=== PATIENT | male | born 1940 | race Hispanic/Latino ===

== ENCOUNTER 2019-02-11 08:23 | Emergency (ER) | payer OTHER ==
--- OUTSIDE RECORDS SUMMARY | 2019-02-11 08:25 | XMS REPORT ---
:1940 Author Organization eClinicalWorks Care Team Providers Name Role Phone Fish Serge Provider Role Unavailable Allergies, Adverse Reactions, Alerts Substance Reaction Event Type Lisinopril Info Not Available Drug Allergy Problems Problem Type Condition Code Onset Dates Condition Status Assessment Personal history of colonic polyps Z86.010 Active Assessment Encounter for preventative adult Z00.00 Active health care examination Assessment Screening for colon cancer Z12.11 Active Problem Elevated prostate specific antigen R97.2 Active (PSA) Problem Prostate cancer C61 Active Problem Hypertension I10 Active Problem BPH without urinary obstruction N40.0 Active Problem Personal history of colonic polyps Z86.010 Active Problem History of radiation exposure Z92.3 Active Assessment BPH without urinary obstruction N40.0 Active Assessment Elevated prostate specific antigen R97.2 Active (PSA) Assessment History of radiation exposure Z92.3 Active Assessment Screening for osteoporosis Z13.820 Active Assessment Prostate cancer C61 Active Medications Medication Code System Code Instructions Start Date End Date Status Dosage Cozaar [facility] 61935203532 25 MG Active TAKE 1 TABLET EVERY DAY Results No Known Results Summary Purpose eClinicalWorks Submission
--- OUTSIDE RECORDS SUMMARY | 2019-02-11 08:25 | XMS REPORT ---
:1940 Author Organization eClinicalWorks Care Team Providers Name Role Phone Abe Serge Provider Role Unavailable Allergies, Adverse Reactions, Alerts Substance Reaction Event Type Lisinopril Info Not Available Drug Allergy Problems Problem Type Condition Code Onset Dates Condition Status Assessment Fall, initial encounter W19.XXXA Active Assessment Leg pain, left M79.605 Active Assessment Muscle strain T14.8XXA Active Problem Elevated prostate specific antigen R97.2 Active (PSA) Problem Prostate cancer C61 Active Problem Hypertension I10 Active Problem BPH without urinary obstruction N40.0 Active Problem Personal history of colonic polyps Z86.010 Active Problem History of radiation exposure Z92.3 Active Medications Medication Code Code Instructions Start End Date Status Dosage System Date Pennsaid [facility] 62969043813 2 % Transdermal Dec 31January 30, Active 2 pumps to Twice a day 2018 2018 affected area Cozaar [facility] 88172277606 25 MG Orally Active take 1 Once a day tablet every day Duexis [facility] 99105769906 800-26.6 MG Dec 31January 30, Active 1 tablet Orally Three 2018 2018 times a day Results No Known Results Summary Purpose eClinicalWorks Submission
--- OUTSIDE RECORDS SUMMARY | 2019-02-11 08:25 | XMS REPORT ---
:1940 Author Organization eClinicalWorks Care Team Providers Name Role Phone Ken Cameron Provider Role Unavailable Allergies No Known Allergies Problems Problem Type Condition Code Onset Dates Condition Status Problem Elevated prostate specific antigen R97.2 Active (PSA) Problem Prostate cancer C61 Active Problem Hypertension I10 Active Problem BPH without urinary obstruction N40.0 Active Problem Personal history of colonic polyps Z86.010 Active Problem History of radiation exposure Z92.3 Active Medications No Known Medications Results No Known Results Summary Purpose [employer] (formerly [employer]) Submission
--- OUTSIDE RECORDS SUMMARY | 2019-02-11 08:25 | XMS REPORT ---
:1940 Author Organization eClinicalWorks Care Team Providers Name Role Phone Fish, [facility] Provider Role Unavailable Allergies, Adverse Reactions, Alerts Substance Reaction Event Type Lisinopril Info Not Available Drug Allergy Problems Problem Type Condition Code Onset Dates Condition Status Assessment Prostate cancer C61 Active Assessment Hypertension I10 Active Assessment Personal history of colonic polyps Z86.010 Active Assessment BPH without urinary obstruction N40.0 Active Assessment History of radiation exposure Z92.3 Active Problem Elevated prostate specific antigen R97.2 Active (PSA) Problem Prostate cancer C61 Active Problem Hypertension I10 Active Problem BPH without urinary obstruction N40.0 Active Problem Personal history of colonic polyps Z86.010 Active Problem History of radiation exposure Z92.3 Active Medications Medication Code System Code Instructions Start End Date Status Dosage Date Tyler [facility] [id number] 25 MG Orally Once Active take 1 a day tablet every day Results No Known Results Summary Purpose eClinicalWorks Submission
--- OUTSIDE RECORDS SUMMARY | 2019-02-11 08:25 | XMS REPORT ---
:1940 Author Organization eClinicalWorks Care Team Providers Name Role Phone Abe [facility] Provider Role Unavailable Allergies No Known Allergies Problems Problem Type Condition Code Onset Dates Condition Status Assessment Serum potassium elevated E87.5 Active Problem Elevated prostate specific antigen R97.2 Active (PSA) Problem Prostate cancer C61 Active Problem Hypertension I10 Active Problem BPH without urinary obstruction N40.0 Active Problem Personal history of colonic polyps Z86.010 Active Problem History of radiation exposure Z92.3 Active Medications No Known Medications Results No Known Results Summary Purpose eClinicalWorks Submission
--- NOTE | 2019-02-11 08:45 | RAD REPORT ---
EXAM DESCRIPTION: CT - Ct Stroke Brain Wo Cont - 02/11/2019 8:39 am CLINICAL HISTORY: Code stroke CT head, right arm weakness and drift CLINICAL HISTORY: None. TECHNIQUE: Axial 5 millimeter thick images of the head were obtained without IV contrast. All CT scans are performed using dose optimization technique as appropriate and may include automated exposure control or mA/KV adjustment according to patient size. FINDINGS: No intracranial hemorrhage, mass, or cerebral edema. No acute cortical based infarction id entified. No cortical edema or sulcal effacement seen. Patient does have underlying mild to moderate atrophy and chronic ischemic change that could mask a nonhemorrhagic CVA. Patient has focal encephalo malacia in the left frontal lobe from remote CVA. Ventricles are in proportion to volume loss. No ext ra-axial fluid collections. Reyes matter-white matter differentiation is preserved. Visualized portions of the mastoid air cells, paranasal sinuses, and orbits are unremarkable. Findings telephoned to doctor Ferris 8:35 a.m. IMPRESSION: No intracranial hemorrhage. No acute cortical infarction identified. Mild to moderate atrophy and chronic ischemic changes are present. Chronic ischemic changes can mask nonhemorrhagic acute infarction. MR brain followup can be obtained if there is ongoing concern for acute ischemia.
[2019-02-11 08:50] LABS: Absolute Lymphocytes (CBC) 1.8 K/uL (0.7-4.9); Absolute Monocytes 0.6 K/uL (0.1-1.3); Absolute Neutrophil 4.8 K/uL (1.8-8.0); Basophils % 1.1 % (0-1.3); Eosinophils % 3.6 % (0-4.4); Hematocrit 43.7 % (39.6-49.0); Lymphocytes % 23.8 % (15.3-44.8); MPV 9.3 fL (7.6-11.3); Monocytes % 7.6 % (3.3-12.3); RBC Red Blood Cell Count 4.74 M/uL (4.33-5.43)
[2019-02-11 08:58] LABS: Protime INR 0.97
[2019-02-11] MEDS ORDERED: ASPIRIN 81 MG CHEWABLE TABLET ONE (08:59)
--- NOTE | 2019-02-11 09:30 | RAD REPORT ---
EXAM DESCRIPTION: RAD - Chest Single View - 02/11/2019 8:51 am CLINICAL HISTORY: Code stroke chest film COMPARISON: December 2014 TECHNIQUE: AP portable chest image was obtained 0849 hours . FINDINGS: Lung volumes are low. Interstitial markings are mildly prominent. This is mostly due to th e shallow inspiration. A mild progression of fibrosis would be possible. Failure or volume overload a re not seen. Heart and vasculature are normal. No measurable pleural effusion and no pneumothorax. No acute bony abnormality seen. No acute aortic findings suspected. IMPRESSION: Limited shallow inspiration film felt be without acute cardiopulmonary finding.
--- NOTE | 2019-02-11 09:49 | RAD REPORT ---
EXAM DESCRIPTION: MRI - Brain Wo Cont - 02/11/2019 9:34 am CLINICAL HISTORY: Right arm weakness COMPARISON: CT head same date TECHNIQUE: Sagittal T1-weighted images were obtained along with axial PD, heavily T2-weighted and T2 -FLAIR images. Axial DWI and ADC mapping sequences were also obtained along with coronal heavily T2-w eighted images. FINDINGS: No intracranial hemorrhage is present. There is no mass effect, edema or shift of midline structures. Patient has mild atrophy. There is minimal chronic ischemic change in the cerebral white matter. In the anterior left frontal lobe there is a 15 millimeter area of encephalomalacia from prio r ischemic or traumatic injury. Diffusion-weighted imaging shows a punctate 2 mm focus of increased signal intensity posterior left f rontal lobe adjacent to deep margin of a sulcus. This is anterior to the central sulcus. In the super ior most left frontal lobe near the midline there is an additional punctate 1-2 mm area of increased signal on diffusion-weighted imaging. These are relatively subtle lesions that do appear to have a co rrelate of diminished signal on ADC mapping. Neither lesion is associated with the central sulcus but are suspicious for punctate acute nonhemorrhagic infarctions. Ventricles are normal. No extra-axial fluid collections. Reyes-matter/white matter junction is preserv ed. Signal voids are seen as a normal finding in the major intracranial vessels. Mastoid air cells and paranasal sinuses are clear. IMPRESSION: Two punctate areas of nonhemorrhagic acute infarction are seen in the posterior left fro ntal lobe. Lesions are in relative proximity to the central sulcus and could potentially contribute t o right-side neurologic symptoms. Patient has mild atrophy and minimal chronic ischemic change. There is old encephalomalacia in the an terior left frontal lobe from a prior CVA or prior traumatic event.
[2019-02-11] MEDS ORDERED: NA CHLORIDE 0.9% 1,000 ML ONE (10:33)
[2019-02-11] MEDS ORDERED: FOLIC ACID 5 MG/ML VIAL ONE (10:35)
--- NOTE | 2019-02-11 11:16 | RAD REPORT ---
EXAM DESCRIPTION: MRI - MRA Head Wo Cont - 02/11/2019 11:02 am CLINICAL HISTORY: CVA, abnormal MRI brain COMPARISON: MR brain February 11 TECHNIQUE: Axial and coronal 3D [id number] image acquisition was performed. 3D rotational images were generated with source and reconstruction images reviewed. Horizontal and vertical axis rotation al views generated using MIP protocol. FINDINGS: Left vertebral artery is dominant. There is mild tortuosity of the vertebrobasilar vascula ture. No basilar stenosis. There is focal narrowing at the origin of the left posterior cerebral khalida ry. The bilateral posterior cerebral artery's more distally show no occlusion or significant atherosc lerotic change. Patient has significant atherosclerotic calcifications and luminal narrowing of the supraclinoid and distal cavernous portions of each internal carotid artery. This is more pronounced on the right. Mild atherosclerotic changes are present in the bilateral middle cerebral arteries. No high-grade stenosi s. The ischemic findings on MRI or very small. No named branch occlusion identifiable. Anterior communicating artery is present. Mild atherosclerotic changes are present in the distal ante rior cerebral arteries was slightly more prominent atherosclerotic change in the left A1 segment of t he anterior cerebral artery. The origins of each internal carotid artery in the neck are not optimally visualized due to motion. I nternal carotid arteries are otherwise unremarkable. IMPRESSION: Atherosclerotic changes are present most pronounced in the distal cavernous and supracli noid portions of each internal carotid artery. Calcifications and atherosclerotic change cause signif icant luminal narrowing. Anterior, middle and posterior cerebral artery distribution show mild atherosclerotic change. No spec ific branch occlusion identifiable for the left cerebral CVA findings. Carotid bulbs are not adequately visualized on this study. Contrast-enhanced MR angiography of the ce rvical vasculature could be performed. Carotid sonography could be performed if the patient cannot re ceive contrast.
[2019-02-11] MEDS ORDERED: HYDRALAZINE HCL 20 MG/ML VIAL ONE (11:38)
--- NOTE | 2019-02-11 11:44 | ER ---
Nurse's Notes [facility] Name: Guanako Man Age: 78 yrs Sex: Male : 1940 Arrival Date: 02/11/2019 Time: 08:27 Bed 14 Private MD: Diagnosis: Cerebral infarction-Posterior left frontal lobe Presentation: 02/11 08:27 Acuity: JUAN 2 sv 08:27 Transition of care: patient was not received from another setting of care. Care prior sv to arrival: None. 08:27 Method Of Arrival: Wheelchair sv 08:27 Presenting complaint: Patient states: "I clocked in to work around 0758 and soon after aa5 8am I started having trouble holding a pen and my right arm felt weak". Pt states "I also have a little bit of pain to right arm". Slight right arm drift noted at this time, strategic account manager are equal, no other neuro deficits noted at this time. 08:27 An acute neurological deficit is present. The patient has been [facility] a [facility]. Pre-hospital glucose is not applicable to this patient. Onset of symptoms was February 11, 2019. Risk Assessment: Do you want to hurt yourself or someone else? Patient reports no desire to harm self or others. 08:50 Initial Sepsis Screen: Does the patient meet any 2 criteria? No. Patient's initial sv sepsis screen is negative. Does the patient have a suspected source of infection? No. Patient's initial sepsis screen is negative. Stroke Activation: Symptom onset < 3 hours Physician: Stroke Attending; Name: ; Notified At: ; Arrived At: Physician: Chief Stroke Resident; Name: ; Notified At: ; Arrived At: Physician: Stroke Resident; Name: ; Notified At: ; Arrived At: Physician: ED Attending; Name: Dr Ferris; Notified At: 08:27; Arrived At: 08:27 Physician: ED Resident; Name: ; Notified At: ; Arrived At: Historical: - Allergies: 08:32 No Known Allergies; sv - Home Meds: 08:45 aspirin 81 mg Oral chew once daily [Active]; losartan 25 mg oral tab 1 tab once daily aa5 [Active]; - PMHx: 08:45 Hypertension; aa5 - PSHx: 08:45 Cholecystectomy; aa5 - Immunization history:: Adult Immunizations up to date, Flu vaccine is up to date. - Social history:: Smoking status: Patient/guardian denies using tobacco. - Ebola Screening: : No symptoms or risks identified at this time. Screenin:28 Abuse screen: Denies threats or abuse. Denies injuries from another. Nutritional sv screening: No deficits noted. Tuberculosis screening: No symptoms or risk factors identified. Fall Risk None identified. Assessment: 08:27 Reassessment: Code Stroke called by Beverly IRELAND. sv 08:27 VAN Scoring: Arm Drift: Minor drift Visual Disturbance: No visual disturbance noted. aa5 Aphasia: No aphasia noted. Neglect: No neglect noted. 08:28 Reassessment: Pt taken to CT via stretcher by me. . aa5 08:37 Reassessment: Pt back from CT scan . aa5 08:39 General: Appears in no apparent distress. comfortable, slender, well groomed, well sv developed, Behavior is calm, cooperative, appropriate for age. Pain: Denies pain. Neuro: Level of Consciousness is awake, alert, obeys commands, Oriented to person, place, time, situation, Tumbler Operator are equal bilaterally Moves all extremities. Gait is steady, Speech is normal, Facial symmetry appears normal, Facial symmetry: tongue is midline, Pupils are PERRLA, Reports dizziness. Respiratory: Respiratory effort is even, unlabored, Respiratory pattern is regular, symmetrical. Derm: Skin is pink, warm \\T\\ dry. 08:50 Patient has been NPO before screening. The patient is alert, and able to follow sv commands. The patient does not exhibit slurred or garbled speech. The patient is not exhibiting difficulty speaking. The patient does not exhibit difficulty understanding words. The patient is able to swallow own secretions with no drooling or need for suction. Patient tolerated one teaspoon of water. No drooling, immediate coughing, gurgling, or clearing of the throat was noted. The patient tolerated 90mL of water. No drooling, immediate coughing, gurgling, or clearing of the throat was noted. The patient passed the bedside swallow screening. Oral medications may be given as ordered. Contact Physician for further diet orders. Provider notified of bedside swallow screening results: Sheldon NGUYEN. 10:00 Reassessment: PATRICK Yang at bedside, patient states that he is feeling back to normal aj1 at this time. 10:33 Reassessment: Patient transported to MRI via wheelchair. aj1 11:09 Reassessment: Patient returned to room via wheelchair. aj1 11:36 Reassessment: Patient and/or family updated on plan of care and expected duration. Pain aj1 level reassessed. General: Appears in no apparent distress. distressed, Behavior is calm, cooperative, appropriate for age. Pain: Denies pain. Neuro: Level of Consciousness is awake, alert, obeys commands, Oriented to person, place, time, situation, Speech is normal, Facial symmetry appears normal. Cardiovascular: Patient's skin is warm and dry. Rhythm is sinus rhythm. Respiratory: Airway is patent Respiratory effort is even, unlabored, Respiratory pattern is regular, symmetrical. GI: No signs and/or symptoms were reported involving the gastrointestinal system. : No signs and/or symptoms were reported regarding the genitourinary system. EENT: No signs and/or symptoms were reported regarding the EENT system. Derm: No signs and/or symptoms reported regarding the dermatologic system. Skin is pink, warm \\T\\ dry. normal. Musculoskeletal: Range of motion: intact in all extremities. 12:39 Reassessment: Patient appears in no apparent distress at this time. No changes from aj1 previously documented assessment. Patient and/or family updated on plan of care and expected duration. Pain level reassessed. Patient is alert, oriented x 3, equal unlabored respirations, skin warm/dry/pink. 13:10 Reassessment: Patient appears in no apparent distress at this time. No changes from aj1 previously documented assessment. Patient and/or family updated on plan of care and expected duration. Pain level reassessed. Patient is alert, oriented x 3, equal unlabored respirations, skin warm/dry/pink. Vital Signs: 08:38 BP 206 / 63; Pulse 62; Resp 14 S; Temp 97.8(O); Pulse Ox 99% on R/A; aa5 09:00 BP 166 / 50; Pulse 55; Resp 16; Pulse Ox 97% ; sv 10:00 BP 186 / 90; Pulse 52; Resp 18; Pulse Ox 98% on R/A; aj1 11:14 BP 198 / 60; Pulse 55; Resp 13; Pulse Ox 100% on R/A; aj1 11:37 BP 171 / 60; Pulse 65; Resp 18; Pulse Ox 97% on R/A; aj1 12:00 BP 161 / 54; Pulse 67; Resp 18; Pulse Ox 100% on R/A; aj1 13:10 BP 160 / 55; Pulse 62; Resp 18; Pulse Ox 97% ; aj1 NIH Stroke Scale Scores: 08:27 NIHSS Score: 1 aa5 08:39 NIHSS Score: 0 cp ED Course: 08:26 Patient has correct armband on for positive identification. Bed in low position. Call light in reach. 08:27 Patient arrived in ED. mr 08:27 Cat Goss, RN is Primary Nurse. sv 08:[address] via stretcher. sv 08:27 Arm band placed on. sv 08:33 Sheldon Ferris MD is Attending Physician. lottie 08:34 Triage completed. sv 08:38 Sheldon NGUYEN at bedside. sv 08:38 Initial lab(s) drawn, by me, sent to lab. Inserted saline lock: 20 gauge in right sv forearm, using aseptic technique. Blood collected. Flushed right forearm with 5 ml normal saline. 08:39 Sheldon Melendez PA is PHCP. cp 08:39 CT Stroke Brain w/o Contrast In Process Unspecified. EDMS 08:50 X-ray completed. Portable x-ray completed in exam room. Patient tolerated procedure sw well. 08:51 Stroke CXR 1 View In Process Unspecified. EDMS 08:54 Awaiting: MRI. sv 09:15 Patient moved to MRI via wheelchair. sv 09:22 EKG done, by ED staff, reviewed by Sheldon NGUYEN. at1 09:28 Brain Wo Cont In Process Unspecified. EDMS 09:39 Patient moved back from [facility]. sv 09:56 Report given to Shannan IRELAND. sv 09:56 initiated a transfer with Faiza Serrano at the [facility] transfer center. eb 10:00 connected the neurologist methane gas collection system operator from [facility] Dr. Hong with Sheldon NGUYEN for eb patient transfer consultation. 10:50 Patient moved to MRI via wheelchair. em2 11:02 MRA Head Wo Cont In Process Unspecified. EDMS 11:15 MRI completed. Patient tolerated well. Patient moved back from [facility]. em2 11:[address] Hong back for Sheldon NGUYEN for patient transfer consultation/ he is eb unavailable at this time and will call back. 11:35 returned phone call to Quirino NGUYEN to discuss tranfer consultation. eb 11:46 administrative approval given by Lynda Fajardo RN/ patient has been accepted to [facility] bed 2263/ has accepted the patient in transfer/ report to be called [phone]. 12:20 Report given to SHU Escobar at [facility]. aj1 13:10 No provider procedures requiring assistance completed. Patient transferred, IV remains aj1 in place. Administered Medications: 08:51 Drug: Aspirin Chewable Tablet 324 mg Route: PO; sv 09:19 Follow up: Response: No adverse reaction sv 11:13 Drug: foLIC Acid 1 mg Route: IVPB; Site: right antecubital; aj1 13:22 Follow up: IV Status: Completed infusion aj1 11:14 Drug: NS 0.9% 500 ml Route: IV; Rate: bolus; Site: right antecubital; aj1 13:22 Follow up: IV Status: Completed infusion; IV Intake: 500ml aj1 11:35 Drug: NS 0.9% 250 ml Route: IV; Rate: ml/hr; Site: right antecubital; aj1 13:22 Follow up: IV Status: Completed infusion; IV Intake: 250ml aj1 11:35 Drug: hydrALAZINE 10 mg Route: IV; Rate: bolus; Site: right antecubital; aj1 13:22 Follow up: IV Status: Completed infusion aj1 Point of Care Testing: Blood Glucose: 08:41 Blood Glucose: 137 mg/dL; sv Ranges: Intake: 13:22 IV: 500ml; Total: 500ml. aj1 13:22 IV: 250ml; Total: 750ml. aj1 Outcome: 11:44 ER care complete, transfer ordered by MD. correa 13:10 Transferred by ground EMS to [facility]. aj1 13:10 Condition: stable 13:10 Discharge instructions given to patient, Instructed on the need for transfer, Demonstrated understanding of instructions. 13:23 Patient left the ED. aj1 NIH Stroke Scale - NIH Stroke Score Date: 02/11/2019 Time: 08:27 Total Score = 1 1a. Level of Consciousness (LOC) - 0(Alert) 1b. Level of Consciousness (LOC) (Year \\T\\ Age) - 0(Both) 1c. LOC Commands (Open \\T\\ Closes Eyes/Formation Testing Operator) - 0(Both) 2. Best Gaze (Lateral Gaze Paresis) - 0(Normal) 3. Visual Field Loss - 0(No visual loss) 4. Facial Palsy - 0(Normal) 5a. Left Arm: Motor (10-second hold) - 0(No drift) 5b. Right Arm: Motor (10-second hold) - 1(Drift) 6a. Left Leg: Motor (5-second hold - always test supine) - 0(No drift) 6b. Right Leg: Motor (5-second hold - always test supine) - 0(No drift) 7. Limb Ataxia (finger/nose \\T\\ heel/antonio - test with eyes open) - 0(Absent) 8. Sensory Loss (pinprick arms/legs/face) - 0(Normal) 9. Best Language: Aphasia (description/naming/reading) - 0(No aphasia) 10. Dysarthria (speech clarity - read or repeat words) - 0(Normal) 11. Extinction and Inattention (visual/tactile/auditory/spatial/personal) - 0(No abnormality) Initials: aa5 NIH Stroke Scale - NIH Stroke Score Date: 02/11/2019 Time: 08:39 Total Score = 0 1a. Level of Consciousness (LOC) - 0(Alert) 1b. Level of Consciousness (LOC) (Year \\T\\ Age) - 0(Both) 1c. LOC Commands (Open \\T\\ Closes Eyes/Formation Testing Operator) - 0(Both) 2. Best Gaze (Lateral Gaze Paresis) - 0(Normal) 3. Visual Field Loss - 0(No visual loss) 4. Facial Palsy - 0(Normal) 5a. Left Arm: Motor (10-second hold) - 0(No drift) 5b. Right Arm: Motor (10-second hold) - 0(No drift) 6a. Left Leg: Motor (5-second hold - always test supine) - 0(No drift) 6b. Right Leg: Motor (5-second hold - always test supine) - 0(No drift) 7. Limb Ataxia (finger/nose \\T\\ heel/antonio - test with eyes open) - 0(Absent) 8. Sensory Loss (pinprick arms/legs/face) - 0(Normal) 9. Best Language: Aphasia (description/naming/reading) - 0(No aphasia) 10. Dysarthria (speech clarity - read or repeat words) - 0(Normal) 11. Extinction and Inattention (visual/tactile/auditory/spatial/personal) - 0(No abnormality) Initials: cp Signatures: Dispatcher [employer] EDShannan Trinidad, SHU RN aj1 Cat Goss RN RN sv Anderson, Corey, MD MD cha Rivera, Mary mr Donal, SHU Paul RN aa5 Thien Funk2 Meera Cortez, director of acquisitions EKG Tat1 Tracey Garcia Corey, PATRICK PA Clarisse Mendez Corrections: (The following items were deleted from the chart) 08:48 08:32 PSHx: None; sv aa5 11:14 10:00 BP 186 / 0; Pulse 52bpm; Resp 18bpm; Pulse Ox 98% RA; aj1 aj1
--- NOTE | 2019-02-11 11:44 | EDPHYS ---
Physician Documentation [facility] Name: Guanako Man Age: 78 yrs Sex: Male : 1940 Arrival Date: 02/11/2019 Time: 08:27 Bed 14 Private MD: ROMA Physician Sheldon Ferris HPI: 02/11 08:35 This 78 yrs old Male presents to ER via Wheelchair with complaints of S/S of cp Possible Stroke. 08:35 The patient's problem is reported as weakness, in the right upper extremity. Onset: The cp symptoms/episode began/occurred suddenly, noticed weakness in right arm while attempting to write at desk this morning sometime after clocking in at 0800. Duration: This was a single incident. Associated signs and symptoms: Pertinent positives: dizziness, Pertinent negatives: abdominal pain, blurred vision, chest pain, headache, lightheadedness. Patient's baseline: Neuro: alert and fully oriented, Motor: no deficits, Ambulation: walks without assistance, Speech: normal. Historical: - Allergies: 08:32 No Known Allergies; sv - Home Meds: 08:45 aspirin 81 mg Oral chew once daily [Active]; losartan 25 mg oral tab 1 tab once daily aa5 [Active]; - PMHx: 08:45 Hypertension; aa5 - PSHx: 08:45 Cholecystectomy; aa5 - Immunization history:: Adult Immunizations up to date, Flu vaccine is up to date. - Social history:: Smoking status: Patient/guardian denies using tobacco. - Ebola Screening: : No symptoms or risks identified at this time. ROS: 08:39 Eyes: Negative for injury, pain, redness, and discharge. cp 08:39 Constitutional: Negative for body aches, chills, fever, poor PO intake. 08:39 ENT: Negative for drainage from ear(s), ear pain, sore throat, difficulty swallowing, difficulty handling secretions. 08:39 Cardiovascular: Negative for chest pain, edema, palpitations. 08:39 Respiratory: Negative for cough, shortness of breath, wheezing. 08:39 Abdomen/GI: Negative for abdominal pain, nausea, vomiting, and diarrhea. 08:39 Back: Negative for pain at rest, pain with movement. 08:39 Skin: Negative for cellulitis, rash. 08:39 Neuro: Positive for dizziness, weakness, Negative for altered mental status, headache, syncope, visual changes. 08:39 All other systems are negative. cp Exam: 08:39 Radiologist reports: no acute findings cp 08:45 Constitutional: The patient appears in no acute distress, alert, awake, cp non-diaphoretic, non-toxic, well developed, well nourished. 08:45 Head/Face: Normocephalic, atraumatic. Eyes: Pupils equal round and reactive to light, cp extra-ocular motions intact. Lids and lashes normal. Conjunctiva and sclera are non-icteric and not injected. Cornea within normal limits. Periorbital areas with no swelling, redness, or edema. ENT: Nares patent. No nasal discharge, no septal abnormalities noted. Tympanic membranes are normal and external auditory canals are clear. Oropharynx with no redness, swelling, or masses, exudates, or evidence of obstruction, uvula midline. Mucous membranes moist. Chest/axilla: Normal chest wall appearance and motion. Nontender with no deformity. No lesions are appreciated. 08:45 Cardiovascular: Rate: normal, Rhythm: regular, Pulses: Pulses are 2+ in right radial artery and left radial artery. 08:45 Respiratory: the patient does not display signs of respiratory distress, Respirations: cp normal, no use of accessory muscles, no retractions, no splinting, no tachypnea, labored breathing, is not present, Breath sounds: are clear throughout, no decreased breath sounds, no stridor, no wheezing. 08:45 Abdomen/GI: Inspection: abdomen appears normal, Bowel sounds: active, all quadrants, Palpation: abdomen is soft and non-tender, in all quadrants. 08:45 Back: pain, is absent, ROM is normal. 08:45 Musculoskeletal/extremity: Exam is negative for decreased range of motion, deformity, injury. 08:45 Skin: cellulitis, is not appreciated, no rash present. 08:45 Neuro: Orientation: to person, place \T\ time. Mentation: is normal, Cerebellar function: Romberg testing is negative, normal finger to nose testing, heel to antonio testing is normal, Motor: moves all fours, strength is normal, Sensation: is normal. 09:12 ECG was reviewed by the Attending Physician. cp Vital Signs: 08:38 BP 206 / 63; Pulse 62; Resp 14 S; Temp 97.8(O); Pulse Ox 99% on R/A; aa5 09:00 BP 166 / 50; Pulse 55; Resp 16; Pulse Ox 97% ; sv 10:00 BP 186 / 90; Pulse 52; Resp 18; Pulse Ox 98% on R/A; aj1 11:14 BP 198 / 60; Pulse 55; Resp 13; Pulse Ox 100% on R/A; aj1 11:37 BP 171 / 60; Pulse 65; Resp 18; Pulse Ox 97% on R/A; aj1 12:00 BP 161 / 54; Pulse 67; Resp 18; Pulse Ox 100% on R/A; aj1 13:10 BP 160 / 55; Pulse 62; Resp 18; Pulse Ox 97% ; aj1 NIH Stroke Scale Scores: 08:27 NIHSS Score: 1 aa5 08:39 NIHSS Score: 0 cp MDM: 08:33 Patient medically screened. lottie 09:58 Data reviewed: vital signs, nurses notes, lab test result(s), EKG, radiologic studies, cp CT scan, MRI, plain films. 09:58 Test interpretation: by ED physician or midlevel provider: ECG, plain radiologic cp studies. 10:05 Physician consultation: was contacted at 10:05, DR Nix, neurologist \[facility], recommends explaining risk vs benefits of tpa to patient and if patient agrees to administer tpa. Explained that patient is currently asymptomatic and feels like he is back to nomal. 10:14 ED course: VSS. Reevaluation: Patient reports he feel's back to normal and denies any cp current weakness or dizziness. Discussed risk of possible bleeding with administration of tpa vs benefit at this point with patient reporting he feels normal. Patient refuses tpa at this time. Will obtain MRA brain and transfer to [facility]. 11:40 Physician consultation: was contacted at 11:41, DR Rea, hospitalist services at [facility] will accept patient as transfer. 02/11 08:31 Order name: Basic Metabolic Panel; Complete Time: 09:29 sv 02/11 09:29 Interpretation: Normal except: GLUC 114; GFR 77. cp 02/11 08:31 Order name: CBC with Diff sv 02/11 08:27 Order name: CT Stroke Brain w/o Contrast; Complete Time: 09:29 sv 02/11 08:31 Order name: Protime (+inr); Complete Time: 09:29 sv 02/11 08:31 Order name: Ptt, Activated; Complete Time: 09:29 sv 02/11 11:22 Interpretation: Abnormal: PTT 42.0. cp 02/11 12:52 Order name: Glucose, Ancillary Testing EDMS 02/11 08:31 Order name: Stroke CXR 1 View; Complete Time: 09:53 sv 02/11 09:02 Order name: Brain Wo Cont; Complete Time: 09:53 EDMS 02/11 10:15 Order name: MRA Head Wo Cont; Complete Time: 11:21 EDMS 02/11 08:31 Order name: EKG; Complete Time: 08:32 sv 02/11 08:31 Order name: Accucheck; Complete Time: 08:47 sv 02/11 08:31 Order name: Cardiac monitoring; Complete Time: 08:47 sv 02/11 08:31 Order name: IV Saline Lock; Complete Time: 08:47 sv 02/11 08:31 Order name: Labs collected and sent; Complete Time: 08:47 sv 02/11 08:31 Order name: NPO; Complete Time: 08:46 sv 02/11 08:31 Order name: O2 Per Protocol; Complete Time: 08:46 sv 02/11 08:31 Order name: O2 Sat Monitoring; Complete Time: 08:47 sv 02/11 08:31 Order name: Stroke Swallow Screen; Complete Time: 08:51 sv EC:12 Rate is 53 beats/min. Rhythm is regular. ND interval is normal. QRS interval is cp prolonged at 168 msec. QT interval is normal. T waves are Inverted in leads I, aVL. Interpreted by me. Reviewed by me. Administered Medications: 08:51 Drug: Aspirin Chewable Tablet 324 mg Route: PO; sv 09:19 Follow up: Response: No adverse reaction sv 11:13 Drug: foLIC Acid 1 mg Route: IVPB; Site: right antecubital; aj1 13:22 Follow up: IV Status: Completed infusion aj1 11:14 Drug: NS 0.9% 500 ml Route: IV; Rate: bolus; Site: right antecubital; aj1 13:22 Follow up: IV Status: Completed infusion; IV Intake: 500ml aj1 11:35 Drug: NS 0.9% 250 ml Route: IV; Rate: ml/hr; Site: right antecubital; aj1 13:22 Follow up: IV Status: Completed infusion; IV Intake: 250ml aj1 11:35 Drug: hydrALAZINE 10 mg Route: IV; Rate: bolus; Site: right antecubital; aj1 13:22 Follow up: IV Status: Completed infusion aj1 Point of Care Testing: Blood Glucose: 08:41 Blood Glucose: 137 mg/dL; sv Ranges: Critical Glucose Levels:Adult <50 mg/dl or >400 mg/dl <40 mg/dl or >180 mg/dl Disposition: 14:14 Co-signature as Attending Physician, Sheldon Ferris MD I agree with the assessment and lottie plan of care. Disposition: 02/11/19 11:[address] [facility]. Diagnosis is Cerebral infarction - Posterior left frontal lobe. - Reason for transfer: Higher level of care. - Accepting physician is DR Rea. - Condition is Stable. - Problem is new. - Symptoms are resolved. NIH Stroke Scale - NIH Stroke Score Date: 02/11/2019 Time: 08:27 Total Score = 1 1a. Level of Consciousness (LOC) - 0(Alert) 1b. Level of Consciousness (LOC) (Year \T\ Age) - 0(Both) 1c. LOC Commands (Open \T\ Closes Eyes/Glassware Maker Demonstrator) - 0(Both) 2. Best Gaze (Lateral Gaze Paresis) - 0(Normal) 3. Visual Field Loss - 0(No visual loss) 4. Facial Palsy - 0(Normal) 5a. Left Arm: Motor (10-second hold) - 0(No drift) 5b. Right Arm: Motor (10-second hold) - 1(Drift) 6a. Left Leg: Motor (5-second hold - always test supine) - 0(No drift) 6b. Right Leg: Motor (5-second hold - always test supine) - 0(No drift) 7. Limb Ataxia (finger/nose \T\ heel/antonio - test with eyes open) - 0(Absent) 8. Sensory Loss (pinprick arms/legs/face) - 0(Normal) 9. Best Language: Aphasia (description/naming/reading) - 0(No aphasia) 10. Dysarthria (speech clarity - read or repeat words) - 0(Normal) 11. Extinction and Inattention (visual/tactile/auditory/spatial/personal) - 0(No abnormality) Initials: aa5 NIH Stroke Scale - NIH Stroke Score Date: 02/11/2019 Time: 08:39 Total Score = 0 1a. Level of Consciousness (LOC) - 0(Alert) 1b. Level of Consciousness (LOC) (Year \T\ Age) - 0(Both) 1c. LOC Commands (Open \T\ Closes Eyes/Glassware Maker Demonstrator) - 0(Both) 2. Best Gaze (Lateral Gaze Paresis) - 0(Normal) 3. Visual Field Loss - 0(No visual loss) 4. Facial Palsy - 0(Normal) 5a. Left Arm: Motor (10-second hold) - 0(No drift) 5b. Right Arm: Motor (10-second hold) - 0(No drift) 6a. Left Leg: Motor (5-second hold - always test supine) - 0(No drift) 6b. Right Leg: Motor (5-second hold - always test supine) - 0(No drift) 7. Limb Ataxia (finger/nose \T\ heel/antonio - test with eyes open) - 0(Absent) 8. Sensory Loss (pinprick arms/legs/face) - 0(Normal) 9. Best Language: Aphasia (description/naming/reading) - 0(No aphasia) 10. Dysarthria (speech clarity - read or repeat words) - 0(Normal) 11. Extinction and Inattention (visual/tactile/auditory/spatial/personal) - 0(No abnormality) Initials: cp Signatures: Dispatcher [employer] EDLA Shannan Keane RN RN aj1 Cat Goss RN RN sv Anderson, Corey, MD MD cha Calderon, Audri, RN RN aa5 Sheldon Melendez PA PA cp Corrections: (The following items were deleted from the chart) 08:48 08:32 PSHx: None; sv aa5 09:02 08:46 Stroke Protocol ordered. [facility] EDLA 11:47 11:44 02/11/2019 11:[address] [facility]. cp Diagnosis is Cerebral infarction. Reason for transfer: Higher level of care. Accepting physician is DR Rea. Condition is Stable. Problem is new. Symptoms are resolved. cp 13:23 11:47 02/11/2019 11:[address] [facility]. aj1 Diagnosis is Cerebral infarction - Posterior left frontal lobe. Reason for transfer: Higher level of care. Accepting physician is DR Rea. Condition is Stable. Problem is new. Symptoms are resolved. cp
[2019-02-11 13:29] VITALS: TEMP 97.8
[2019-02-11 13:36] VITALS: BP 160/55; O2SAT 97
--- NOTE | 2019-02-12 09:26 | EKG ---
Test Date: 2019-02-11 Test Time: 09:05:56 [employer]: МАРИНА MEASUREMENT RESULTS: Intervals: Rate: 53 GA: 178 QRSD: 168 QT: 480 QTc: 450 [place]: P: 37 GA: 178 QRS: -27 T: 97 INTERPRETIVE STATEMENTS: Sinus bradycardia Left bundle branch block Abnormal ECG Compared to ECG 06/22/2013 08:51:01 Left bundle-branch block now present Electronically Signed On 02-12-19 09:22:11 CDT by Juan Carlos Ferguson
== END 2019-02-11 13:23 | disposition short-term general hospital (02) ==
LOC: ER 08:23
DX: I63.9 Cerebral infarction, unspecified (principal); I10 Essential (primary) hypertension; R29.701 NIHSS score 1; Z79.82 Long term (current) use of aspirin
CPT/HCPCS: 36415; 70450; 70544; 70551; 71045; 80048; 82962; 85025; 85610; 85730; 93005; 96365; 96367; 99285; J0360

== ENCOUNTER 2025-01-19 12:00 | Day surgery (SDC) | payer BC, OTHER ==
[2025-01-16 10:18] LABS: Absolute Basophils 0.1 K/uL (0-0.5); Absolute Eosinophils 0.3 K/uL (0-0.5); Absolute Monocytes 0.8 K/uL (0.1-1.3); Absolute Neutrophil 5.8 K/uL (1.8-8.0); Basophils % 0.9 % (0-1.3); Eosinophils % 2.9 % (0-4.4); Hematocrit 40.2 % (39.6-49.0); Hemoglobin 13.3 g/dL (13.6-17.9); Lymphocytes % 22.8 % (15.3-44.8); MCH 30.6 pg (27.0-35.0); MCHC 33.1 g/dL (32.0-36.0); MCV 92.5 fL (80-100); MPV 8.6 fL (7.6-11.3); Monocytes % 9.3 % (3.3-12.3); Neutrophils % 64.1 % (41.7-73.7); Nucleated Red Blood Cells % 0.1 % (0-0); Platelets 192 thou/uL (152-406); RBC Red Blood Cell Count 4.34 M/uL (4.33-5.43); Red Cell Distribution Width 13.3 % (12.1-15.2)
[2025-01-16 10:24] LABS: PTT, Activated Partial Thromb 37.4 SECONDS (24.3-36.9); Protime INR 1.14
[2025-01-16 10:30] LABS: Anion Gap 8.6 mEq/L (5.0-15.0); Potassium 4.6 mEq/L (3.5-5.1)
[2025-01-19] MEDS ORDERED: NA CHLORIDE 0.9% 500 ML ONE (12:13)
[2025-01-19] MEDS ORDERED: HEPA 1000U/500MLS 2,000 UNIT/1,000 ML BAG IV ONE (12:52)
[2025-01-19] MEDS ORDERED: MIDAZOLAM HCL 2 MG/2 ML INJ ONE (12:52)
[2025-01-19] MEDS ORDERED: LIDOCAINE 1% 20 ML MDV ONE (12:52)
[2025-01-19] MEDS ORDERED: HEPARIN 10,000 UNIT/10 ML VIAL IV ONE (12:52)
[2025-01-19] MEDS ORDERED: ATROPINE SULF 1 MG/10 ML SYR IV ONE (12:52)
[2025-01-19] MEDS ORDERED: ASPIRIN 325 MG TAB ONE (12:53)
[2025-01-19] MEDS ORDERED: TICAGRELOR 90 MG TABLET PO ONE (12:53)
[2025-01-19] MEDS ORDERED: CLOPIDOGREL 75 MG TABLET ONE (12:53)
[2025-01-19] MEDS ORDERED: FENTANYL CITR 100 MCG/2 ML ONE (12:53)
[2025-01-19] MEDS ORDERED: HEPARIN 5000 UNIT/ML 1 ML VIAL ONE (12:53)
[2025-01-19] MEDS ORDERED: VERAPAMIL HCL 10 MG/4 ML VIAL IV ONE (12:54)
--- NOTE | 2025-01-19 14:46 | OP ---
Date of Procedure: 01/19/2025 Surgeon: ADRIA JAY Procedures Performed: 1. Selective coronary angiogram. 2. Left heart catheterization. Indication: Chest pain with abnormal stress test. Access: Right radial artery 6-[place], closed with TR band. Complications: None. Bleeding: Less than 50 mL. Anesthesia: Total sedation time is 45 minutes. Used fentanyl and Versed. Description Of Procedure: After risks, benefits, and alternatives were explained, the patient agreed to procedure and signed informed consent. The patient was brought into cardiac catheterization [facility], prepped and draped in sterile fashion and then I accessed right radial artery using pediatric micropuncture kit, placed 6-[place] slender sheath. Took 5-[place] tiger 4 catheter into aortic root, engaged left main, took standard views, crossed the aortic valve over the wire, measured the LVEDP. Pullback did not record any significant gradient. Then exchanged for 4-[place] 3DRC catheter, engage d the RCA, took standard views and removed the catheter and the sheath, placed TR band with good hemo stasis. Findings: 1. Left main ostial 30% stenosis. 2. LAD; proximal 30%, mid diffuse 20% to 30% stenosis. Diagonal 1 branch has ostial 50% stenosis. D iagonal 2 branch has ostial 70% stenosis, but it is very small. The rest of the LAD is with luminal irregularities, becomes small vessel. 3. Left circumflex, small vessel, has mid 50% stenosis, nondominant. 4. RCA, very large and dominant, proximal 40% to 50%, mid to diffuse 30% and the PLB has mid 50% sten osis and PDA is normal. 5. LVEDP is normal at 10 mmHg. Conclusion: Moderate coronary artery disease with normal LVEDP. Recommendation: Medical management. SR/MODL Voice ID: [id number] Report ID: [id number]
[2025-01-19 15:16] VITALS: O2SAT 99
[2025-01-19 15:44] VITALS: BP 138/45
--- NOTE | 2025-01-23 12:33 | EKG ---
Test Date: 2025-01-16 Test Time: 10:55:30 Line Supervisor: DARIO MEASUREMENT RESULTS: Intervals: Rate: 53 [place]: 168 QRSD: 166 QT: 492 QTc: 461 [place]: P: 28 IL: 168 QRS: -37 T: 97 INTERPRETIVE STATEMENTS: Sinus bradycardia Left axis deviation Left bundle branch block Abnormal ECG Compared to ECG 08/06/2024 13:42:19 Sinus rhythm no longer present Electronically Signed On 01-23-25 12:18:51 HEARING AID SPECIALIST by Jose Aragon
== END 2025-01-19 15:52 | disposition home or self-care (01) ==
LOC: CCL 12:00
PROVIDERS: ATTEND Internal Medicine
DX: I25.10 Atherosclerotic heart disease of native coronary artery without angina pectoris (principal); I35.0 Nonrheumatic aortic (valve) stenosis; I44.7 Left bundle-branch block, unspecified; I65.29 Occlusion and stenosis of unspecified carotid artery; I73.9 Peripheral vascular disease, unspecified; I10 Essential (primary) hypertension; E78.5 Hyperlipidemia, unspecified; Z87.891 Personal history of nicotine dependence; Z79.899 Other long term (current) drug therapy
CPT/HCPCS: 93005; 85025; 80048; 36415; 85610; 85730; 93458; 76937; C1893; Q9966; J1644; J2003; J2250; J3010; J7040; 99152; 99153; J0461